=== PATIENT | male | born 1935 | race Caucasian/White ===

== ENCOUNTER → 2016-09-09 | Outpatient (CLI) | payer MEDICARE, OTHER | END | disposition home or self-care (01) | LOC: GMAB 11:49 | PROVIDERS: ATTEND Family Medicine | DX: C61 Malignant neoplasm of prostate (principal) ==

== ENCOUNTER → 2017-02-02 | Outpatient (CLI) | payer MEDICARE, OTHER | LOC: GMAB 10:57 | PROVIDERS: ATTEND Family Medicine | DX: C61 Malignant neoplasm of prostate (principal); I10 Essential (primary) hypertension; E11.40 Type 2 diabetes mellitus with diabetic neuropathy, unspecified ==

== ENCOUNTER → 2017-02-17 | Outpatient (CLI) | payer MEDICARE, OTHER | LOC: LAB.O 15:43 | PROVIDERS: ATTEND Psychiatry & Neurology Neurology | DX: M45.0 Ankylosing spondylitis of multiple sites in spine (principal); M71.50 Other bursitis, not elsewhere classified, unspecified site; L67.9 Hair color and hair shaft abnormality, unspecified; K50.90 Crohn's disease, unspecified, without complications; M15.0 Primary generalized (osteo)arthritis; F01.50 Vascular dementia, unspecified severity, without behavioral disturbance, psychotic disturbance, mood disturbance, and anxiety; E03.9 Hypothyroidism, unspecified; G60.3 Idiopathic progressive neuropathy; M35.1 Other overlap syndromes; G35 Multiple sclerosis; M79.1 Myalgia; G70.00 Myasthenia gravis without (acute) exacerbation; G04.89 Other myelitis; M81.8 Other osteoporosis without current pathological fracture; M35.3 Polymyalgia rheumatica; M33.22 Polymyositis with myopathy; G61.81 Chronic inflammatory demyelinating polyneuritis; M54.12 Radiculopathy, cervical region; M54.16 Radiculopathy, lumbar region; I73.00 Raynaud's syndrome without gangrene; G25.89 Other specified extrapyramidal and movement disorders; M06.9 Rheumatoid arthritis, unspecified; D86.9 Sarcoidosis, unspecified; M35.00 Sjogren syndrome, unspecified; G47.30 Sleep apnea, unspecified; G47.9 Sleep disorder, unspecified; E11.9 Type 2 diabetes mellitus without complications ==

== ENCOUNTER → 2017-03-09 | Outpatient (CLI) | payer MEDICARE, OTHER | LOC: SL 16:01 | PROVIDERS: ATTEND Psychiatry & Neurology Neurology | DX: G47.33 Obstructive sleep apnea (adult) (pediatric) (principal) ==

== ENCOUNTER → 2017-04-11 | Outpatient (CLI) | payer MEDICARE, OTHER | END | disposition home or self-care (01) | LOC: GMAB 10:33 | PROVIDERS: ATTEND Family Medicine | DX: C61 Malignant neoplasm of prostate (principal) ==

== ENCOUNTER → 2017-07-14 | Outpatient (CLI) | payer MEDICARE, OTHER | END | disposition home or self-care (01) | LOC: GMAB 10:47 | PROVIDERS: ATTEND Family Medicine | DX: C61 Malignant neoplasm of prostate (principal) ==

== ENCOUNTER → 2017-07-28 | Outpatient (CLI) | payer MEDICARE, OTHER ==
--- NOTE | 2017-07-29 13:26 | CT ---
EXAM DESCRIPTION: Chest w/o Contrast : Computed Tomography. CLINICAL HISTORY: INTERSTITIAL LUNG DISEASE COMPARISON: CT thorax with contrast 02/14/2012. TECHNIQUE: Spiral-axial scans at 1.25 mm mm intervals, 2 cm separation, high-resolution algorithm, through the upper, mid, and lower lung zones and thorax, prone and supine, without IV contrast. 2.5 mm lung algorithm axial , 5.0 mm reconstructions. Coronal and sagittal 2.0 Mm reconstructions. Total Exam DLP: 668.09 mGy-cm. This exam was performed according to our departmental dose-optimization program which includes automated exposure control, adjustment of the mA and/or kV according to patient size and/or use of iterative reconstruction technique; to reduce radiation dose to as low as reasonably achievable (ALARA). FINDINGS: The high-resolution scans show minimal peribronchial cuffing in the perihilar regions. Small emphysematous blebs more prevalent in the upper lung zones. Pleural blebs and bulla bilaterally along with pleural thickening. These regions are focal and associated with tree-in-bud lung parenchymal pattern. One region is in the posterior aspect of the apex of the superior segment right lower lobe (series 5, image 6). Second region is lateral lingula (image 7). No pleural effusion. Peripheral groundglass density in the inferior lingula and in the posterior aspect of the superior segment of the right lower lobe. Minimal bilaterally at the lung bases best seen on the prone scans. Bilateral apical pleural thickening. Atherosclerotic calcifications thoracic aorta as well as coronary artery calcifications/stents. Calcification of the proximal brachiocephalic vessels. Inhomogeneous appearance of the thyroid gland. Evaluation of mediastinum and hilum for soft tissue masses and adenopathy is limited due to lack of IV contrast. No adenopathy in the axillary regions. No subdiaphragmatic free fluid or free air in the included peritoneal space. Bilateral renal cysts. Included spleen normal size and density. Multiple levels of spondylosis in the thoracic spine with no bone destruction. Bilateral glenohumeral joint narrowing and subchondral sclerosis. IMPRESSION: 1. Bronchiectasis. Interstitial lung disease.. Bilateral centrilobular emphysema more prevalent in the upper lung espitia. Bilateral isolated pleural bulla. Bilateral Multiple localized regions of pleural blebs and parenchymal small airway disease. 2. No abnormal nodules or masses. 3. Evaluation of mediastinum and hilum limited due to lack of IV contrast. 4. Diffuse thoracic kyphosis. Bilateral glenohumeral joint arthrosis. Atherosclerotic calcifications in the proximal brachiocephalic vessels and thoracic aorta. Coronary artery stents and calcifications. Bilateral renal cysts. Electronically signed by: Herbie Vicente MD 07/29/2017 1:25 PM [employer]IST
== END | disposition home or self-care (01) ==
LOC: CT 08:00
DX: J84.9 Interstitial pulmonary disease, unspecified (principal); J43.2 Centrilobular emphysema

== ENCOUNTER → 2017-10-25 | Outpatient (CLI) | payer MEDICARE, OTHER | END | disposition home or self-care (01) | LOC: GMAB 12:06 | PROVIDERS: ATTEND Family Medicine | DX: C61 Malignant neoplasm of prostate (principal) ==

== ENCOUNTER → 2018-02-07 | Outpatient (CLI) | payer MEDICARE, OTHER | LOC: GMAE 10:39 | PROVIDERS: ATTEND Family Medicine | DX: C61 Malignant neoplasm of prostate (principal); I10 Essential (primary) hypertension ==

== ENCOUNTER 2018-04-24 05:24 | Day surgery (SDC) | payer MEDICARE, OTHER ==
[2018-04-24] MEDS ORDERED: TROP 1%/CYCLOPEN 1%/PHENYL 2% DROPS ONE (06:00)
[2018-04-24] MEDS ORDERED: MIDAZOLAM INJ 2 MG/2 ML VIAL ONE (06:37)
[2018-04-24] MEDS: PROPARACAINE 0.5% OPHTH SOL 15 ML BTTL ONE (07:55)
[2018-04-24] MEDS: LIDOCAINE 1% MPF 5 ML VIAL INJ ONE (08:02)
[2018-04-24] MEDS: TOBRAMYCIN SULF 0.3 % OPHT SOL 1 DROP RIGHT_EYE ONE ×2 (08:07→08:17)
[2018-04-24] MEDS: DEXAMETHASONE 0.1% OPHTH SOL 1 DROP RIGHT_EYE ONE ×2 (08:07→08:17)
[2018-04-24] MEDS: BRIMONIDINE 0.2% OPHTH DROPS RIGHT_EYE ONE ×2 (08:08→08:17)
== END 2018-04-24 08:55 | disposition home or self-care (01) ==
LOC: AMB 05:24
PROVIDERS: ATTEND Ophthalmology
DX: H26.9 Unspecified cataract (principal); E11.36 Type 2 diabetes mellitus with diabetic cataract; I10 Essential (primary) hypertension; I25.10 Atherosclerotic heart disease of native coronary artery without angina pectoris; E66.9 Obesity, unspecified; Z85.46 Personal history of malignant neoplasm of prostate; Z88.0 Allergy status to penicillin; Z79.82 Long term (current) use of aspirin; Z79.899 Other long term (current) drug therapy
CPT/HCPCS: 00142; 36416; 66984; 82948; J2250

== ENCOUNTER 2018-05-08 05:31 | Day surgery (SDC) | payer MEDICARE, OTHER ==
[2018-05-08] MEDS ORDERED: PROPARACAINE 0.5% OPHTH SOL 15 ML BTTL ONE (05:59)
[2018-05-08] MEDS ORDERED: TROP 1%/CYCLOPEN 1%/PHENYL 2% DROPS ONE (05:59)
[2018-05-08] MEDS ORDERED: MIDAZOLAM INJ 2 MG/2 ML VIAL ONE (07:05)
[2018-05-08] MEDS ORDERED: PROPARACAINE 0.5% OPHTH SOL 15 ML BTTL LEFT_EYE ONE (08:06)
[2018-05-08] MEDS ORDERED: LIDOCAINE 1% PF 2 ML AMP INJ ONE (08:20)
[2018-05-08] MEDS ORDERED: TOBRAMYCIN SULF 0.3 % OPHT SOL 1 DROP LEFT_EYE ONE ×2 (08:23→08:36)
[2018-05-08] MEDS ORDERED: DEXAMETHASONE 0.1% OPHTH SOL 1 DROP LEFT_EYE ONE ×2 (08:23→08:36)
[2018-05-08] MEDS ORDERED: BRIMONIDINE 0.2% OPHTH DROPS LEFT_EYE ONE ×2 (08:23→08:36)
== END 2018-05-08 09:15 | disposition home or self-care (01) ==
LOC: AMB 05:31
PROVIDERS: ATTEND Ophthalmology
DX: H25.12 Age-related nuclear cataract, left eye (principal); E11.36 Type 2 diabetes mellitus with diabetic cataract; I10 Essential (primary) hypertension; I25.10 Atherosclerotic heart disease of native coronary artery without angina pectoris; G47.30 Sleep apnea, unspecified; Z88.0 Allergy status to penicillin; Z79.82 Long term (current) use of aspirin; Z79.899 Other long term (current) drug therapy
CPT/HCPCS: 00142; 36416; 66984; 82948; J2250

== ENCOUNTER → 2018-05-22 | Outpatient (CLI) | payer MEDICARE, OTHER | LOC: GMAE 13:36 | PROVIDERS: ATTEND Family Medicine | DX: C61 Malignant neoplasm of prostate (principal) ==

== ENCOUNTER 2018-09-14 09:11 | Emergency (ER) | payer MEDICARE, OTHER ==
[2018-09-14 09:25] VITALS: TEMP 98.4
[2018-09-14] MEDS ORDERED: SODIUM CHLORIDE 0.9% 1000ML 500 ML IVS ONE (09:41)
--- NOTE | 2018-09-14 10:09 | RAD ---
EXAM DESCRIPTION: Chest,1 View CLINICAL HISTORY: near syncope COMPARISON: CT of the thorax July 28, 2014. FINDINGS: Portable frontal view the thorax was acquired. No acute consolidation is demonstrated. Honeycombing/secondary interlobular septal thickening consistent with end-stage interstitial lung disease. Persistently elevated left hemidiaphragm suggesting left diaphragmatic dysfunction/paralysis. Heart and mediastinum is within normal limits. 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 Remote surgical changes of the lower neck. IMPRESSION: No acute radiographic abnormality. Stable appearance to chronic findings described above. Electronically signed by: Panchito Jane MD 09/14/2018 10:06 AM [facility]
[2018-09-14 11:22] VITALS: BP 136/65
--- NOTE | 2018-09-14 11:31 | ED.PDOC ---
History of Present Illness - General Chief Complaint: Cardiac Respiratory Arrest Stated Complaint: dizziness, shortness of breath Time Seen by Provider: 09/14/18 09:32 Source: patient Exam Limitations: no limitations - History of Present Illness Initial Comments: the patient is an 83-year-old male presenting to the emergency room secondary to feeling dizzy and weak when going to his pulmonary rehabilitation this morning. The patient is significantly tilt positive by blood pressure drop of 30 points just with sitting up. He is unable to achieve a tachycardic resp onse due to a beta blockade. No fevers. No real shortness of breath except with some exertion. No syncope. Questionable near syncope. He does take multiple blood pressure medications and a diuretic. Timing/Duration: unsure Severity: moderate Improving Factors: nothing Worsening Factors: nothing Associated Symptoms: denies symptoms Allergies/Adverse Reactions: Allergies Penicillins Allergy (Verified 04/24/18 07:21) Home Medications: Ambulatory Orders Aspirin [Aspirin Adult Low Dose] 81 mg PO DAILY 04/24/18 Carvedilol 6.25 tablet PO BID 04/24/18 Albuterol Sulfate [Ventolin Hfa] 108 mcg INH PRN PRN 09/14/18 Furosemide 20 mg PO DAILY 09/14/18 Lisinopril 10 mg PO DAILY 09/14/18 Review of Systems - Review of Systems Constitutional: States: malaise, weakness EENTM: States: no symptoms reported Respiratory: States: no symptoms reported Cardiology: States: no symptoms reported Gastrointestinal/Abdominal: States: no symptoms reported Genitourinary: States: no symptoms reported Musculoskeletal: States: no symptoms reported Skin: States: no symptoms reported Neurological: States: no symptoms reported Endocrine: States: no symptoms reported All other Systems: No Change from Baseline Past Medical History (General) - Patient Medical History Hx Stroke: No Hx Dementia: No Hx of COPD: Yes Hx Congestive Heart Failure: No Hx Hypertension: Yes Hx Thyroid Disease: No Hx Diabetes: No Hx MRSA: No Surgical History: other - Vaccination History Hx Influenza Vaccination: Yes - 2017 Hx Pneumococcal Vaccination: Yes - 2018 Family Medical History - Family History Father Family History: Unknown Physical Exam - Physical Exam General Appearance: Alert, Comfortable, No apparent distress Eye Exam: bilateral normal Ears, Nose, Throat: normal ENT inspection, normal pharynx, other - hronic dec reased hearing bilaterally Neck: full range of motion, supple Respiratory: lungs clear, normal breath sounds, no respiratory distress, no accessory muscle use Cardiovascular/Chest: normal peripheral pulses, regular rate, rhythm, no edema, other - mild bradycardia Peripheral Pulses: radial,right: 2+, radial,left: 2+, dorsalis pedis,right: 2+, dorsalis pedis,left: 2+ Gastrointestinal/Abdominal: non tender, soft Rectal Exam: deferred Back Exam: no CVA tenderness, no vertebral tenderness Extremity: normal range of motion, non-tender, normal inspection, no pedal edema, normal capillary refill Neurologic: community pharmacist II-XII nml as tested, alert, normal mood/affect, oriented x 3 Skin Exam: normal color Comments: Vital Signs - 24 hr 09/14/18 09/14/18 09:16 11:22 Temperature 98.4 F Pulse Rate [ 58 L 55 L left brachial] Respiratory 22 20 Rate Blood Pressure 134/71 136/65 [left brachial] O2 Sat by Pulse 98 94 L Oximetry 09/14/18 09:41 Telemetry .CONTINUOUS sinus bradycardia Vital Signs-Tilt PRN drop in systolic blood pressure of 30 points when going from lying to sitting 09/14/18 09:45 EKG STAT sinus bradycardia at 52 bpm. Changes consistent with LVH. No definitive ST segment or T-wave changes consistent with acute ischemia. Normal QT interval. Normal R-wave progression. chest x-ray shows no acute pathology. No overt fluid overload. No infiltrates. No pneumothorax. Laboratory Results - last 24 hr 09/14/18 09/14/18 09/14/18 09:49 09:49 09:49 WBC 8.6 RBC 4.30 L Hgb 12.7 L Hct 37.5 L MCV 87.1 MCH 29.5 MCHC 33.8 RDW 14.2 Plt Count 252 MPV 7.6 Absolute Neuts (auto) 6.70 Absolute Lymphs (auto) 0.90 L Absolute Monos (auto) 0.80 Absolute Eos (auto) 0.20 Absolute Basos (auto) 0.00 Neutrophils % 77.8 Lymphocytes % 10.3 L Monocytes % 9.0 Eosinophils % 2.3 Basophils % 0.6 Sodium 137 Potassium 4.3 Chloride 104 Carbon Dioxide 23 Anion Gap 14.3 BUN 25 H Creatinine 1.03 BUN/Creatinine Ratio 24.3 H Random Glucose 120 H Serum Osmolality 279.4 Lactic Acid 1.7 Calcium 9.3 Magnesium 2.4 Total Bilirubin 0.7 AST 31 ALT 28 Alkaline Phosphatase 58 Creatine Kinase 396 H* CK-MB (CK-2) 13.2 H* CK-MB (CK-2) % 3.33 Troponin I < 0.02 B-Natriuretic Peptide 44.7 Serum Total Protein 7.0 Albumin 3.7 Globulin 3.3 Albumin/Globulin Ratio 1.1 Urine Color Urine Appearance Urine pH Ur Specific [place] Urine Protein Urine Glucose (UA) Urine Ketones Urine Blood Urine Nitrite Urine Bilirubin Urine Urobilinogen Ur Leukocyte Esterase Urine RBC Urine WBC Ur Epithelial Cells Urine Bacteria 09/14/18 10:18 WBC RBC Hgb Hct MCV MCH MCHC RDW Plt Count MPV Absolute Neuts (auto) Absolute Lymphs (auto) Absolute Monos (auto) Absolute Eos (auto) Absolute Basos (auto) Neutrophils % Lymphocytes % Monocytes % Eosinophils % Basophils % Sodium Potassium Chloride Carbon Dioxide Anion Gap BUN Creatinine BUN/Creatinine Ratio Random Glucose Serum Osmolality Lactic Acid Calcium Magnesium Total Bilirubin AST ALT Alkaline Phosphatase Creatine Kinase CK-MB (CK-2) CK-MB (CK-2) % Troponin I B-Natriuretic Peptide Serum Total Protein Albumin Globulin Albumin/Globulin Ratio Urine Color Yellow Urine Appearance Clear Urine pH 7.0 Ur Specific [place] 1.015 Urine Protein 30 Urine Glucose (UA) Negative Urine Ketones Trace Urine Blood Negative Urine Nitrite Negative Urine Bilirubin Negative Urine Urobilinogen 1.0 Ur Leukocyte Esterase Negative Urine RBC 0 Urine WBC 0-1 Ur Epithelial Cells 0-1 Urine Bacteria 0 Progress - Progress Progress: 09/14/18 11:32 the patient is a 83-year-old male presenting to the emergency room secondary to what appears to be dehydration giving significant orthostasis and near syncope. He was given a 500 cc fluid bolus which did improve his symptoms significantly. I would encourage him to hold his Lasix for the next 3 days and then he should probably resume it at one dose twice weekly for now. He does need to record his blood pressures 2-3 times daily and particularly if he is having any dizziness or weakness. He does have a mild sinus bradycardia that is likely the result of medications. If he continues to have symptomatic episodes then a reduction of other blood pressure medications may be required. No other pathology has been found at this visit. ER warnings were given. Follow up with primary care doctor early next week. Ambulate carefully to prevent falls. Departure - Departure Clinical Impression: Orthostasis, Syncope, near, Dehydration, Sinus bradycardia Disposition: Discharge to Home or Self Care Condition: Fair Departure Forms: ED Discharge - Pt. Copy, Patient Portal Self Enrollment Instructions: Dehydration, Adult (DC), Orthostatic Hypotension (DC) Diet: regular diet Activity: increase activity as tolerated Referrals: STEPHANIE CR MD [Primary Care Provider] - 1-2 Weeks Home Medications: Ambulatory Orders Aspirin [Aspirin Adult Low Dose] 81 mg PO DAILY 04/24/18 Carvedilol 6.25 tablet PO BID 04/24/18 Albuterol Sulfate [Ventolin Hfa] 108 mcg INH PRN PRN 09/14/18 Furosemide 20 mg PO DAILY 09/14/18 Lisinopril 10 mg PO DAILY 09/14/18 Additional Instructions: the patient is a 83-year-old male presenting to the emergency room secondary to what appears to be dehydration giving significant orthostasis and near syncope. He was given a 500 cc fluid bolus which did improve his symptoms significantly. I would encourage him to hold his Lasix for the next 3 days and then he should probably resume it at one dose twice weekly for now. He does need to record his blood pressures 2-3 times daily and particularly if he is having any dizziness or weakness. He does have a mild sinus bradycardia that is likely the result of medications. If he continues to have symptomatic episodes then a reduction of other blood pressure medications may be required. No other pathology has been found at this visit. ER warnings were given. Follow up with primary care doctor early next week. Ambulate carefully to prevent falls.
[2018-09-14 11:45] VITALS: O2SAT 98
== END 2018-09-14 11:46 | disposition home or self-care (01) ==
LOC: ER 09:11
DX: I95.1 Orthostatic hypotension (principal); R55 Syncope and collapse; R00.1 Bradycardia, unspecified; E86.0 Dehydration; J44.9 Chronic obstructive pulmonary disease, unspecified; I10 Essential (primary) hypertension; Z79.82 Long term (current) use of aspirin; Z79.899 Other long term (current) drug therapy; Z88.0 Allergy status to penicillin
CPT/HCPCS: 36415; 71045; 80053; 81001; 82550; 82553; 83605; 83735; 83880; 84484; 85025; 93005; J7030

== ENCOUNTER → 2018-11-27 | Outpatient (CLI) | payer MEDICARE, OTHER | LOC: RESP 10:07 | PROVIDERS: ATTEND Nuclear Medicine Nuclear Cardiology | DX: R00.1 Bradycardia, unspecified (principal) ==

== ENCOUNTER → 2018-11-28 | Outpatient (CLI) | payer MEDICARE, OTHER | LOC: GMAE 16:44 | PROVIDERS: ATTEND Family Medicine | DX: C61 Malignant neoplasm of prostate (principal) ==

== ENCOUNTER → 2018-12-29 | Outpatient (CLI) | payer MEDICARE, OTHER ==
--- NOTE | 2019-01-01 11:41 | CT ---
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 TECHNIQUE: Postcontrast CTA images of the abdomen, pelvis, and bilateral lower extremities are obtained. Three-D reconstructed images of the arterial vasculature are performed. This exam was performed according to our departmental dose-optimization program, which includes automated exposure control, adjustment of the mA and/or kV according to patient size and/or use of iterative reconstruction technique . FINDINGS: Visualized lung bases show peripheral interstitial thickening likely representing chronic interstitial fibrotic disease. The heart is enlarged. Calcifications of the aortic valve are seen. Liver is heterogeneous and decreased attenuation consistent with fatty infiltration. The spleen, pancreas, adrenal glands, and gallbladder are unremarkable. Multiple fluid attenuation bilateral renal cortical cysts are seen. The largest in the right kidney measures 8.5 cm. The largest complex cyst in the anterior mid to lower pole left kidney measures 8.5 cm and contains curvilinear areas of calcification in the mid to inferior aspect of this multiseptated cystic lesion. Urinary bladder is poorly distended but unremarkable. Prostate is small or surgically absent. Moderate sclerotic and subcortical cystic changes of the pubic symphysis are seen. Multiple surgical clips in the pelvic sidewall region are seen bilaterally. The appendix is not identified. No small bowel obstruction. Moderate colon constipation or obstipation is seen. No pathologic lymphadenopathy. Moderate right suprapatellar joint effusion. Left total knee arthroplasty. Moderate to severe scattered calcified plaque of the arterial vasculature are seen. Mild stenosis at the origin of the celiac artery is seen. Moderate to severe stenosis of the proximal superior mesenteric artery approximately 1 cm from the origin of the SMA. Split lumen of the infrarenal abdominal aorta is seen suggesting previous aorta to bilateral iliac artery bypass. Abdominal aorta measures 2.8 cm greatest diameter. 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 The right measures 1.9 cm. Moderate scattered calcified plaque of the iliac arteries without high-grade or flow limiting stenosis of the common or external iliac arteries. Severe stenosis at origin of the right greater than left internal iliac arteries is seen. Moderate calcified plaque of the common femoral arteries without stenosis. Right lower extremity: Moderate scattered focal calcified plaque throughout the right superficial femoral artery seen. Focal severe stenosis of the mid to distal right facial femoral artery is seen at the anastomosis with a right vertebral vessel femoral artery to popliteal artery bypass graft. Occlusion of the distal right SFA and popliteal artery is seen with coil embolization of popliteal artery aneurysm. The proximal bypass graft is mildly dilated measuring 1.8 cm. Moderate calcified plaque of the distal popliteal artery and trifurcation vessels is seen. Opacification of the anterior tibialis artery to the dorsalis pedis and foot is seen. Peroneal arteries opacified to the distal tibia. The posterior tibialis artery is opacified to the proximal tibia. Left lower extremity: Moderate to severe scattered calcified plaque of the superficial femoral artery is seen. Vascular stent in the distal superficial femoral artery is seen. 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 Contrast is seen around the distal aspect of the stent within the aneurysm sac. Beam hardening artifact from left total knee arthroplasty screws visualization of the distal popliteal artery. Severe calcified plaque of the trifurcation vessels is seen with severe stenosis at the origin of the left anterior tibialis artery which is occluded proximally. Opacification of the peroneal artery to the foot is seen. The right posterior tibialis artery is opacified to the proximal tibia. 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 Recommend follow-up imaging every 5 years. Findings suggest possible previous in situ aorto to bilateral femoral artery bypass. Correlate with patient history. Left greater than right aneurysm of the common iliac artery measuring 2.3 cm on the left. 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 Severe stenosis and poststenotic dilatation of the origin of the bypass graft is seen. Vascular stent, possibly endograft, is seen extending through the central lumen of a left popliteal artery aneurysm. Contrast is seen in the [place] aneurysm sac distally around the stent for endograft could indicate endograft leak. Severe trifurcation disease bilaterally with single distal vessel runoff bilaterally. 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 Bilateral renal cortical cysts with complex cysts containing curvilinear calcifications in both kidneys left greater than right. These represent Bosniak 2F lesions. Consider follow-up imaging in 6 months with ultrasound or CT of the abdomen. Electronically signed by: Jaime De Leon MD 01/01/2019 11:39 AM CDT
== END ==
LOC: CT 08:00
PROVIDERS: ATTEND Physician Assistant
DX: I72.4 Aneurysm of artery of lower extremity (principal); I71.4 Abdominal aortic aneurysm, without rupture; I72.3 Aneurysm of iliac artery; I74.3 Embolism and thrombosis of arteries of the lower extremities; N28.1 Cyst of kidney, acquired; N20.0 Calculus of kidney

== ENCOUNTER 2019-01-29 05:37 | Day surgery (SDC) | payer MEDICARE, OTHER ==
[2019-01-29] MEDS ORDERED: MOXIFLOXACIN HCL (OPHTH) 1 DROP DROPS ONE (05:55)
[2019-01-29] MEDS ORDERED: PROPARACAINE 0.5% OPHTH SOL 15 ML BTTL ONE (05:56)
[2019-01-29] MEDS ORDERED: TROP 1%/CYCLOPEN 1%/PHENYL 2% DROPS ONE (05:56)
[2019-01-29 07:42] VITALS: BP 145/81; TEMP 97.7; O2SAT 96
== END 2019-01-29 07:37 | disposition home or self-care (01) ==
LOC: AMB 05:37
PROVIDERS: ATTEND Ophthalmology
DX: H26.491 Other secondary cataract, right eye (principal); E11.36 Type 2 diabetes mellitus with diabetic cataract; I10 Essential (primary) hypertension; Z88.0 Allergy status to penicillin

== ENCOUNTER → 2019-05-16 | Outpatient (CLI) | payer MEDICARE, OTHER | LOC: GMAE 10:34 | PROVIDERS: ATTEND Family Medicine | DX: E03.9 Hypothyroidism, unspecified (principal); E11.40 Type 2 diabetes mellitus with diabetic neuropathy, unspecified; I10 Essential (primary) hypertension; Z85.46 Personal history of malignant neoplasm of prostate ==

== ENCOUNTER → 2019-08-29 | Outpatient (CLI) | payer MEDICARE, OTHER | LOC: GMAHI 13:53 | PROVIDERS: ATTEND Nurse Practitioner Family | DX: E11.40 Type 2 diabetes mellitus with diabetic neuropathy, unspecified (principal); R42 Dizziness and giddiness ==

== ENCOUNTER → 2019-10-18 | Outpatient (CLI) | payer MEDICARE, OTHER | LOC: GMAE 11:13 | PROVIDERS: ATTEND Family Medicine | DX: C61 Malignant neoplasm of prostate (principal) ==

== ENCOUNTER → 2019-12-21 | Outpatient (CLI) | payer MEDICARE, OTHER | LOC: GMAE 10:32 | PROVIDERS: ATTEND Family Medicine | DX: C61 Malignant neoplasm of prostate (principal); R94.8 Abnormal results of function studies of other organs and systems ==

== ENCOUNTER → 2020-03-17 | Outpatient (CLI) | payer MEDICARE, OTHER | LOC: GMAE 14:06 | PROVIDERS: ATTEND Family Medicine | DX: C61 Malignant neoplasm of prostate (principal) ==

== ENCOUNTER → 2020-04-17 | Outpatient (CLI) | payer MEDICARE, OTHER | LOC: GMAE 16:38 | PROVIDERS: ATTEND Family Medicine | DX: R06.00 Dyspnea, unspecified (principal); R07.2 Precordial pain ==

== ENCOUNTER → 2020-04-22 | Outpatient (CLI) | payer MEDICARE, OTHER | LOC: ECHO 11:00 | PROVIDERS: ATTEND Family Medicine | DX: I51.7 Cardiomegaly (principal); I35.0 Nonrheumatic aortic (valve) stenosis; I35.1 Nonrheumatic aortic (valve) insufficiency ==

== ENCOUNTER → 2020-05-19 | Outpatient (CLI) | payer MEDICARE, OTHER | LOC: LAB.NP 10:51 | PROVIDERS: ATTEND Family Medicine | DX: Z12.5 Encounter for screening for malignant neoplasm of prostate (principal); I10 Essential (primary) hypertension; E11.40 Type 2 diabetes mellitus with diabetic neuropathy, unspecified; E78.2 Mixed hyperlipidemia | CPT/HCPCS: 84443; G0103 ==